=== PATIENT | female | born 1975 | race Caucasian/White ===

== ENCOUNTER 2018-02-12 05:48 | Day surgery (SDC) | payer BC ==
[2018-02-08 11:14] LABS: BASOPHILS # (AUTO) 0.1 X10'3 (0-0.2); BASOPHILS % (AUTO) 0.9 % (0-1); EOSINOPHILS # (AUTO) 0.1 X10'3 (0-0.9); EOSINOPHILS % (AUTO) 1.3 % (0-6); LYMPHOCYTES # (AUTO) 1.5 X10'3 (1.1-4.8); LYMPHOCYTES % (AUTO) 21.6 % (21-51); MEAN CORPUSCULAR HEMOGLOBIN 30.2 PG (27.0-31.0); MEAN CORPUSCULAR HGB CONC 34.5 % (33.0-36.5); MEAN CORPUSCULAR VOLUME 87.4 FL (78-98); MEAN PLATELET VOLUME 7.8 FL (7.4-10.4); MONOCYTES # (AUTO) 0.7 X10'3 (0-0.9); MONOCYTES % (AUTO) 9.5 % (2-12); NEUTROPHILS # (AUTO) 4.6 X10'3 (1.8-7.7); NEUTROPHILS % (AUTO) 66.7 % (42-75); PRE OP HEMATOCRIT 37.6 % (35.0-45.0); PRE OP PLATELET COUNT 318 X10'3 (140-440); RED CELL DISTRIBUTION WIDTH 15.2 % (11.5-14.5)
[2018-02-08 11:33] LABS: ALBUMIN 3.4 G/DL (3.4-5.0); ALBUMIN/GLOBULIN RATIO 0.8 (1.1-1.5); ALKALINE PHOSPHATASE 71 IU/L (46-116); BLOOD UREA NITROGEN 12 MG/DL (7-18); CHLORIDE 104 MMOL/L (99-107); PRE OP ALT 22 U/L (30-65); PRE OP ANION GAP 7 (8-16); PRE OP AST 13 U/L (10-37); PRE OP BILIRUB, TOTAL 0.4 MG/DL (0.0-1.0); PRE OP GLUCOSE 100 MG/DL (70-104); PRE OP SODIUM 139 MMOL/L (135-145); TOTAL CARBON DIOXIDE 28.4 MMOL/L (24-32); TOTAL PROTEIN 7.5 G/DL (6.4-8.2); eGFR 60 ML/MIN
[2018-02-08 12:09] LABS: HCG SERUM QL NEGATIVE
[2018-02-12] VITALS (8 sets, daily range): BP systolic 81–144; BP diastolic 58–92
[~2018-02-12] VITALS: Ht 170.2 cm; Wt 132.5 kg
[~2018-02-12 05:48] MED LIST: ACET-2119 PO; ceFAZolin inj. 2,000 MG in dextrose 5%-water 100 ML IV ONE; famotidine 20mg tablet PO ONE; ringers solution, lacted 1,000 ML IV SCH
[2018-02-12] MEDS ORDERED: LIDOcaine 1% (10mg/ml) 2ml vial ONE (06:07)
[2018-02-12] MEDS ORDERED: cloNIDine hcl/PF 100mcg/ml inj ONE (08:35)
[2018-02-12] MEDS ORDERED: ROPIVAcaine 0.5% (5mg/ml) 30ml vial ONE (08:35)
[2018-02-12] MEDS ORDERED: fentaNYL/PF 50MCG/1 ML 2ML syringe ONE (08:37)
[2018-02-12] MEDS ORDERED: midazolam 2 mg/2 ml injection ONE (08:38)
[2018-02-12] MEDS ORDERED: dexamethasone sod phosphate 4mg/ml inj. ONE (08:39)
[2018-02-12] MEDS ORDERED: propofol inj 20 ML IV ONE (08:39)
[2018-02-12] MEDS ORDERED: sevoflurane 250ml liquid IH ONE (08:53)
[2018-02-12] MEDS ORDERED: BUPIVAcaine/PF 7.5mg/ml (0.75%) 10ml vial ONE (08:57)
[2018-02-12] MEDS ORDERED: ringers solution, lacted 1,000 ML IV SCH (09:42)
[2018-02-12] MEDS ORDERED: ondansetron/PF 4mg/2ml inj IV PRN (09:45)
[2018-02-12] MEDS ORDERED: morphine 4 MG/ML inj SYRINge IV PRN ×2 (09:45)
[2018-02-12] MEDS ORDERED: fentaNYL/PF 50MCG/1 ML 2ML syringe IV PRN ×2 (09:45)
[2018-02-12] MEDS ORDERED: hydrALAZINE 20mg/ml inj. IV PRN (09:45)
[2018-02-12] MEDS ORDERED: enalaprilat dihydrate 2.5mg/2ml vial IV PRN (09:45)
[2018-02-12] MEDS ORDERED: HYDROcodone/acetaminophen 10/325mg tab PO PRN (10:55)
== END 2018-02-12 12:10 | disposition home or self-care (01) ==
LOC: PAS 05:48
PROVIDERS: ATTEND Orthopaedic Surgery
DX: M75.121 Complete rotator cuff tear or rupture of right shoulder, not specified as traumatic (principal); M75.51 Bursitis of right shoulder; M25.711 Osteophyte, right shoulder; M65.811 Other synovitis and tenosynovitis, right shoulder; E66.9 Obesity, unspecified; G89.18 Other acute postprocedural pain; M19.011 Primary osteoarthritis, right shoulder; Z72.89 Other problems related to lifestyle; Z79.891 Long term (current) use of opiate analgesic; Z98.890 Other specified postprocedural states; Z68.42 Body mass index [BMI] 45.0-49.9, adult
CPT/HCPCS: 29824; 29826; 29827; 36415; 64450; 80053; 84703; 85025; A6449; C1713; J0690; J0735; J1100; J2250; J2405; J2704; J2795; J3010; J3490; J7030; J7060; J7120; A7000